=== PATIENT | female | born 1940 | race Caucasian/White ===

== ENCOUNTER 2019-04-12 20:34 | Emergency (ER) | payer MEDICARE, OTHER ==
--- NOTE | 2019-04-12 22:13 | EDM.PDOC ---
ED HPI GENERAL MEDICAL PROBLEM - General Chief Complaint: Genitourinary Problem Stated Complaint: UTI Time Seen by Provider: 04/12/19 21:50 Source of Information: Reports: Patient History Limitations: Reports: No Limitations - History of Present Illness INITIAL COMMENTS - FREE TEXT/NARRATIVE: pt c/o dysuria and frequency since this afternoon, denies fever / back pain or any other associated sx or concerns. - Related Data Allergies Allergy/AdvReac Type Severity Reaction Status Date / Time almond Allergy Rash Verified 04/12/19 21:01 Home Meds: Home Meds .Fish Oil 04/27/14 [History] .Folic Acid 04/27/14 [History] .Lysine 04/27/14 [History] .Milk Thistle 04/27/14 [History] .Vitamin D 04/27/14 [History] Garlic Pill 04/27/14 [History] Mesalamine [Asacol Hd] TID 04/27/14 [History] ED ROS GENERAL - Review of Systems Review Of Systems: See Below Constitutional: Reports: No Symptoms Respiratory: Reports: No Symptoms Cardiovascular: Reports: No Symptoms GI/Abdominal: Reports: No Symptoms : Reports: Dysuria, Frequency. Denies: Flank Pain, Hematuria Musculoskeletal: Reports: No Symptoms ED EXAM, RENAL/ - Physical Exam Exam: See Below Exam Limited By: No Limitations General Appearance: Alert, No Apparent Distress Respiratory/Chest: No Respiratory Distress Cardiovascular: Normal Peripheral Pulses GI/Abdominal: Normal Bowel Sounds Back Exam: Normal Inspection. No: CVA Tenderness (R), CVA Tenderness (L) Extremities: Normal Inspection Course - Vital Signs Text/Narrative:: pt has UTI, cipro and Pyridium. Last Recorded V/S: Last Vital Signs Temp 36.9 C 04/12/19 20:55 Pulse 86 04/12/19 20:55 Resp 18 04/12/19 20:55 BP 169/93 H 04/12/19 20:55 Pulse Ox 97 04/12/19 20:55 - Orders/Labs/Meds Labs: Laboratory Tests 04/12/19 Range/Units 21:15 Urine Color Yellow (YELLOW) Urine Appearance Clear (CLEAR) Urine pH 6.0 (5.0-6.5) Ur Specific [place] 1.005 L (1.010-1.025) Urine Protein Negative (NEGATIVE) mg/dL Urine Glucose (UA) Normal (NORMAL) mg/dL Urine Ketones Negative (NEGATIVE) mg/dL Urine Occult Blood Large H (NEGATIVE) Urine Nitrite Negative (NEGATIVE) Urine Bilirubin Negative (NEGATIVE) Urine Urobilinogen Normal (NEGATIVE) mg/dL Ur Leukocyte Esterase Small H (NEGATIVE) Urine RBC 10-20 H (0-5) Urine WBC 10-20 H (0-5) Ur Squamous Epith Cells Rare (NS,R,O) Urine Bacteria Rare H (NS) Departure - Departure Time of Disposition: 22:10 Disposition: Home, Self-Care 01 Clinical Impression: UTI, Urinary tract infectious disease - Discharge Information Referrals: Lonnie Santiago MD [Primary Care Provider] - - Problem List & Annotations (1) UTI (urinary tract infection) SNOMED Code(s): 64441947 Code(s): N39.0 - URINARY TRACT INFECTION, SITE NOT SPECIFIED Status: Acute Current Visit: Yes
[2019-04-12] MEDS ORDERED: Ciprofloxacin 500 MG Tab PO ONE (22:14)
[2019-04-12] MEDS ORDERED: Phenazopyridine 95 MG Tab ONE (22:21)
[2019-04-13] MEDS ORDERED: Phenazopyridine 95 MG Tab PO SCH (09:00)
== END 2019-04-12 22:38 | disposition home or self-care (01) ==
LOC: FB.ED 20:34
DX: N39.0 Urinary tract infection, site not specified (principal); Z91.018 Allergy to other foods; Z79.899 Other long term (current) drug therapy
CPT/HCPCS: 81001; 99283; A9270

== ENCOUNTER 2020-10-18 01:48 | Emergency (ER) | payer MEDICARE, OTHER ==
[2020-10-18] MEDS ORDERED: Alum Hydroxide/Mag Hydroxide 30 ML, Lidocaine 2% 15 ML PO ONE ×2 (02:38)
--- NOTE | 2020-10-18 02:49 | EDM.PDOC ---
ED HPI GENERAL MEDICAL PROBLEM - General Stated Complaint: INDIGESTION Time Seen by Provider: 10/18/20 02:15 Source of Information: Reports: Patient, Family History Limitations: Reports: No Limitations - History of Present Illness INITIAL COMMENTS - FREE TEXT/NARRATIVE: c/o epigastric pain x 12h intermittent epigastric pain/burn, took 2 Tums twice, which helped each time ate usual supper, felt okay, then had burning at lower sternum 1.5h later, Tums helped, did no go away completely no n/v, no cough/sob, no f/c/d lives locally with , dtr from [place] is here pt says she wanted to be sure she was not having an [place] has had dyspepsia in past, also h/o ulcerative colitis in lower abd, had colonoscopy 9m ago that "showed a few lesions", takes mesalamine has 4 loose BMs/day, as she did yesterday pt had a TKR on 09/08, last used hydrocodone over 2 wks ago - Related Data Allergies Allergy/AdvReac Type Severity Reaction Status Date / Time almond Allergy Rash Verified 04/12/19 21:01 Home Meds: Home Meds .Fish Oil 04/27/14 [History] .Folic Acid 04/27/14 [History] .Lysine 04/27/14 [History] .Milk Thistle 04/27/14 [History] .Vitamin D 04/27/14 [History] Garlic Pill 04/27/14 [History] Mesalamine [Asacol Hd] TID 04/27/14 [History] Ciprofloxacin [Cipro] 500 mg PO BID #14 ml 04/12/19 [Rx] Omeprazole 20 mg PO DAILY #14 tablet. 10/18/20 [Rx] Past Medical History Gastrointestinal History: Reports: Other (See Below) Other Gastrointestinal History: ulcerative colitis Genitourinary History: Reports: UTI, Recurrent GROUP CAPTAIN History: Reports: Other GROUP CAPTAIN History: Musculoskeletal History: Reports: Arthritis, Fracture Other Musculoskeletal History: hx fx L wrist Hematologic History: Reports: Anemia Immunologic History: Reports: Other (See Below) Other Immunologic History: ulcerative colitis Dermatologic History: Reports: Other (See Below) Other Dermatologic History: lichen planus - Infectious Disease History Infectious Disease History: Reports: Chicken Pox, Measles, Mumps - Past Surgical History GI Surgical History: Reports: Colonoscopy Female Surgical History: Reports: None Social & Family History - Family History Family Medical History: No Pertinent Family History - Caffeine Use Caffeine Use: Reports: Coffee ED ROS GENERAL - Review of Systems Review Of Systems: See Below Constitutional: Reports: No Symptoms HEENT: Reports: No Symptoms Respiratory: Reports: No Symptoms Cardiovascular: Reports: No Symptoms Endocrine: Reports: No Symptoms GI/Abdominal: Reports: Abdominal Pain. Denies: Nausea, Vomiting : Reports: No Symptoms Musculoskeletal: Reports: No Symptoms Skin: Reports: No Symptoms Neurological: Reports: No Symptoms Psychiatric: Reports: No Symptoms Hematologic/Lymphatic: Reports: No Symptoms Immunologic: Reports: No Symptoms ED EXAM, GI/ABD - Physical Exam Exam: See Below Exam Limited By: No Limitations General Appearance: Alert, WD/WN, No Apparent Distress Throat/Mouth: Normal Inspection, Normal Lips, Normal Teeth, Normal Voice, No Airway Compromise Head: Atraumatic, Normocephalic Neck: Normal Inspection, Supple, Non-Tender, Full Range of Motion. No: Lymphadenopathy (R), Lymphadenopathy (L) Respiratory/Chest: No Respiratory Distress, Normal Breath Sounds, No Accessory Muscle Use, Chest Non-Tender Cardiovascular: Regular Rate, Rhythm, No Edema, No Gallop, No Murmur GI/Abdominal Exam: Normal Bowel Sounds, Other (ND, good BS x 4, mild tender epigastrium only). No: Rigid, Rebound, Tender Back Exam: Normal Inspection, Full Range of Motion. No: CVA Tenderness (R), CVA Tenderness (L) Extremities: Normal Inspection, Normal Range of Motion, Non-Tender, No Pedal Edema Neurological: Alert, Oriented, CN II-XII Intact, Normal Cognition, Normal Gait, No Motor/Sensory Deficits Psychiatric: Normal Affect, Normal Mood Skin Exam: Warm, Dry, Intact, Normal Color, No Rash Lymphatic: No Adenopathy Course - Vital Signs Last Recorded V/S: Last Vital Signs Temp 36.7 C 10/18/20 01:50 Pulse Resp BP Pulse Ox - Orders/Labs/Meds Orders: Active Orders 24 hr Category Date Time Status EKG Documentation Completion [RC] ASDIRECTED Care 10/18/20 02:42 Active Abdomen Pelvis w Cont [CT] Stat Exams 10/18/20 03:49 Ordered Ang Chest [CT] Stat Exams 12/20/20 03:48 Ordered EKG 12 Lead [EK] Routine Ther 10/18/20 02:41 Ordered Labs: Laboratory Tests 10/18/20 10/18/20 10/18/20 Range/Units 02:45 02:45 02:45 WBC 7.8 (3.0-10.3) x10-3/uL RBC 4.51 (3.60-5.20) x10(6)uL Hgb 12.5 (11.4-15.5) g/dL Hct 38.7 (34.2-48.2) % MCV 85.8 (76.7-100.5) fL MCH 27.7 (23.9-33.9) pg MCHC 32.2 (31.9-34.8) g/dL RDW 13.9 (12.3-16.5) % Plt Count 299 (151-488) x10(3)uL MPV 8.3 (7.1-12.4) fL Neut % (Auto) 69.7 (30.8-76.2) % Lymph % (Auto) 16.3 L (18.4-52.1) % [place] % (Auto) 9.9 (4.4-15.7) % Eos % (Auto) 3.4 (0.6-8.1) % Baso % (Auto) 0.7 (0.2-1.5) % Neut # (Auto) 5.4 (1.5-6.3) x10-3/uL Lymph # (Auto) 1.3 (1.0-4.4) x10-3/uL [place] # (Auto) 0.8 (0.3-1.0) x10-3/uL Eos # (Auto) 0.3 (0.0-0.8) x10-3/uL Baso # (Auto) 0.1 (0.0-0.1) x10-3/uL D-Dimer, Quantitative 4.68 H (0.0-0.59) mg/LFEU Sodium 140 (135-145) mmol/L Potassium 3.6 (3.5-5.3) mmol/L Chloride 102 (100-110) mmol/L Carbon Dioxide 28 (21-32) mmol/L BUN 15 (7-18) mg/dL Creatinine 0.7 (0.55-1.02) mg/dL Est Cr Clr Drug Dosing TNP Estimated GFR (MDRD) > 60 (>60) BUN/Creatinine Ratio 21.4 H (9-20) Glucose 98 (80-116) mg/dL Calcium 10.0 (8.6-10.2) mg/dL Total Bilirubin 0.8 (0.1-1.3) mg/dL AST 19 (5-25) IU/L ALT 23 (12-36) U/L Alkaline Phosphatase 59 (56-112) IU/L Troponin I (4.0-60.3) pg/mL C-Reactive Protein (0.5-0.9) mg/dL Total Protein 7.2 (6.0-8.0) g/dL Albumin 3.8 (3.2-4.6) g/dL Globulin 3.4 g/dL Albumin/Globulin Ratio 1.1 Lipase (73-393) U/L 10/18/20 Range/Units 02:45 WBC (3.0-10.3) x10-3/uL RBC (3.60-5.20) x10(6)uL Hgb (11.4-15.5) g/dL Hct (34.2-48.2) % MCV (76.7-100.5) fL MCH (23.9-33.9) pg MCHC (31.9-34.8) g/dL RDW (12.3-16.5) % Plt Count (151-488) x10(3)uL MPV (7.1-12.4) fL Neut % (Auto) (30.8-76.2) % Lymph % (Auto) (18.4-52.1) % [place] % (Auto) (4.4-15.7) % Eos % (Auto) (0.6-8.1) % Baso % (Auto) (0.2-1.5) % Neut # (Auto) (1.5-6.3) x10-3/uL Lymph # (Auto) (1.0-4.4) x10-3/uL [place] # (Auto) (0.3-1.0) x10-3/uL Eos # (Auto) (0.0-0.8) x10-3/uL Baso # (Auto) (0.0-0.1) x10-3/uL D-Dimer, Quantitative (0.0-0.59) mg/LFEU Sodium (135-145) mmol/L Potassium (3.5-5.3) mmol/L Chloride (100-110) mmol/L Carbon Dioxide (21-32) mmol/L BUN (7-18) mg/dL Creatinine (0.55-1.02) mg/dL Est Cr Clr Drug Dosing Estimated GFR (MDRD) (>60) BUN/Creatinine Ratio (9-20) Glucose (80-116) mg/dL Calcium (8.6-10.2) mg/dL Total Bilirubin (0.1-1.3) mg/dL AST (5-25) IU/L ALT (12-36) U/L Alkaline Phosphatase (56-112) IU/L Troponin I 8.1 (4.0-60.3) pg/mL C-Reactive Protein 1.0 H (0.5-0.9) mg/dL Total Protein (6.0-8.0) g/dL Albumin (3.2-4.6) g/dL Globulin g/dL Albumin/Globulin Ratio Lipase 103 (73-393) U/L Meds: Medications Discontinued Medications Generic Name Dose Route Start Last Admin Trade Name Freq PRN Reason Stop Dose Admin Al Hydroxide/Mg Hydroxide 30 0 ml 10/18/20 02:38 10/18/20 03:03 ml/ Lidocaine HCl 15 ml PO 10/18/20 02:39 30 ml ONETIME ONE Administration Famotidine 20 mg 10/18/20 04:12 Pepcid IVPUSH 10/18/20 04:13 ONETIME ONE Iopamidol 100 ml 10/18/20 04:01 10/18/20 04:44 Isovue-370 (76%) IV 10/18/20 04:02 90 ml . DIRECTED ONE Administration Loratadine 10 mg 10/18/20 04:12 Claritin PO 10/18/20 04:13 ONETIME ONE Methylprednisolone Sodium Succinate 125 mg 10/18/20 04:13 Solu-Medrol IVPUSH 10/18/20 04:14 ONETIME ONE - Re-Assessments/Exams Free Text/Narrative Re-Assessment/Exam: 10/18/20 04:28 pt states she was off mesalamine for 6m, however she had more issues with loose stools after her TKR and has resumed the mesalamine GI cocktail resolved sxs completely however pt does have d-dimer nearly 8x ULN, will obtain a chest CTA as a precaution (PO 100% on RA) with follow thru CT of abd and pelvis to further evaluate vascular and colon pt and dtr in agreement 10/18/20 06:03 no PE on chest CTA abd/pelvis CT are neg for acute process Departure - Departure Time of Disposition: 05:58 Disposition: Home, Self-Care 01 Condition: Good Clinical Impression: GERD (gastroesophageal reflux disease) - Discharge Information *PRESCRIPTION DRUG MONITORING PROGRAM REVIEWED*: Not Applicable *COPY OF PRESCRIPTION DRUG MONITORING REPORT IN PATIENT JUANA: Not Applicable Prescriptions: Omeprazole 20 mg PO DAILY #14 tablet.dr Instructions: Gastroesophageal Reflux Disease, Adult Referrals: Lonnie Santiago MD [Primary Care Provider] - Additional Instructions: To decrease acid production, take omeprazole 20 mg 1 tab daily for 2 weeks. To coat and protect the esophagus, use liquid antacid 30 ml (2 tablespoons) 2 hours after meals and bedtime for 2 times, then every 4 hours as needed. For discomfort, take acetaminophen 500 mg 2 tabs every 6 hours as needed. See your doctor in 2 days. Return to ED if you are feeling worse. Sepsis Event Note (ED) - Focused Exam Vital Signs: Vital Signs Temp 10/18/20 01:50 36.7 C - My Orders Last 24 Hours: My Active Orders 10/18/20 02:41 EKG 12 Lead [EK] Routine 10/18/20 02:42 EKG Documentation Completion [RC] ASDIRECTED 10/18/20 03:48 Ang Chest [CT] Stat 10/18/20 03:49 Abdomen Pelvis w Cont [CT] Stat - Assessment/Plan Last 24 Hours: My Active Orders 10/18/20 02:41 EKG 12 Lead [EK] Routine 10/18/20 02:42 EKG Documentation Completion [RC] ASDIRECTED 10/18/20 03:48 Ang Chest [CT] Stat 10/18/20 03:49 Abdomen Pelvis w Cont [CT] Stat
[2020-10-18] MEDS ORDERED: Iopamidol 755 Mg/ML 100 ML Bottle IV ONE (04:01)
[2020-10-18] MEDS ORDERED: Loratadine 10 MG Tab PO ONE (04:12)
[2020-10-18] MEDS ORDERED: Famotidine 20 MG/2 ML SDV IVPUSH ONE (04:12)
[2020-10-18] MEDS ORDERED: methylPREDNISolone Sodium Succinate 125 MG/2 ML SDV IVPUSH ONE (04:13)
[2020-10-18] MEDS ORDERED: Loratadine 10 MG Tab ONE (06:19)
[2020-10-18] MEDS ORDERED: Famotidine/Normal Saline 20 MG/50 ML BAG ONE (06:23)
[2020-10-18] MEDS ORDERED: Famotidine/Normal Saline 20 MG in Premix Bag 1 BAG IV ONE (06:24)
[2020-10-19] MEDS ORDERED: Pantoprazole 40 MG Tab.CR PO ONE (06:06)
== END 2020-10-18 06:50 | disposition home or self-care (01) ==
LOC: FB.ED 01:48
DX: K21.9 Gastro-esophageal reflux disease without esophagitis (principal); L50.9 Urticaria, unspecified; Z91.018 Allergy to other foods
CPT/HCPCS: 36415; 71275; 74177; 80053; 83690; 84484; 85025; 85379; 86140; 93005; 96374; 96375; 99284; A9270; J2930; Q9967; 99283